=== PATIENT | female | born 1975 | race Caucasian/White ===

== ENCOUNTER 2019-10-15 16:13 | Inpatient (IN) ==
[2019-10-15 19:03] LABS: Apearance,Urine CLEAR (Clear); Bacteria,Urine Many /HPF (Few); Bilirubin,Urine Negative (Negative); Blood, Urine Negative (Negative); Glucose,Urine (UA) Negative (Negative); Ketones,Urine Negative (Negative); Mucus,Urine Occasional /LPF (Occasional); Nitrite,Urine Positive (Negative); Protein,Urine Negative; Squamous Epithelial Cell,Urine Few /HPF (0-10); Urine Color Amber (Yellow); Urine Specific Gravity 1.011 (1.001-1.035); WBC,Urine 13 /HPF (0-6)
[2019-10-15 19:07] LABS: Barbiturates Screen,Urine Positive (Negative); Benzodiazepines Screen,Urine Positive (Negative); Cannabinoid Screen,Urine Negative (Negative); Opiate Screen,Urine Negative (Negative); Phencyclidine Screen,Urine Negative (Negative)
[2019-10-15 20:27] LABS: Basophils % 0.5 % (0.0-0.8); Eosinophils # 0.2 10*3/uL (0.0-0.87); Eosinophils % 2.9 % (0.00-10.9); Hematocrit 35.2 VOL% (35.7-47.0); Hemoglobin 11.2 GM/DL (12.0-16.0); Immature Granulocytes % 0.6 %; Immature Granulocytes Absolute 0.05 #; Lymphocytes # 2.4 10*3/uL (1.4-4.0); Lymphocytes % 30.4 % (21.3-54.2); Mean Corpuscular HGB Conc 31.8 GM/DL (32-36); Mean Corpuscular Volume 92.9 FL (87-102); Mean Platelet Volume 12.9 FL (9.6-12.0); Monocytes % 8.6 % (1.7-12.7); Platelet Count 245 T/CUMM (130-400); Red Blood Count 3.79 MC/CUMM (3.8-5.5); Red Cell Distribution Width 13.7 % (9.3-17.3)
[2019-10-15 20:47] LABS: Alanine Aminotransferase 39 U/L (13-56); Albumin 3.3 G/DL (3.4-5.0); Alkaline Phosphatase 128 U/L (45-117); Aspartate Amino Transferase 19 U/L (0-37); Bilirubin,Total < 0.39 MG/DL (0.2-1.0); Blood Urea Nitrogen 7 MG/DL (7-18); Calcium 8.9 MG/DL (8.5-10.1); Estimated Glom Filtration Rate 116 ML/MIN; Glucose 96 MG/DL (74-106); Total Protein 7.7 G/DL (6.4-8.3)
[2019-10-15 20:53] LABS: ABG Base Excess 2.7 MMOL/L (-2.5-2.5); ABG HCO3 26.7 MMOL/L (20-26); ABG Oxygen Saturation 94.3 % (95-100); ABG PCO2 50.3 MM HG (35-48); ABG PH 7.367 (7.35-7.45); ABG PO2 75.2 MM HG (80-95); ABG TCO2 25.9 MMOL/L (23-27); Allen Test Positive; Pt O2 Delivery Device Room Air
[2019-10-15] MEDS ORDERED: NALOXONE 0.4 MG/ML VIAL IM STA (20:55)
[2019-10-15] MEDS ORDERED: ONDANSETRON 4 MG/2 ML VIAL IV PRN (22:09)
[2019-10-16] MEDS: SODIUM CHLORIDE 0.9% 1,000 ML IV SCH ×2 (00:20→09:00)
[2019-10-16] MEDS: PANTOPRAZOLE 40 MG VIAL IV SCH ×3 (02:07→20:28)
[2019-10-16 06:00] LABS: Basophils % 0.4 % (0.0-0.8); Eosinophils # 0.1 10*3/uL (0.0-0.87); Eosinophils % 1.9 % (0.00-10.9); Hematocrit 27.3 VOL% (35.7-47.0); Hemoglobin 8.5 GM/DL (12.0-16.0); Immature Granulocytes % 0.4 %; Immature Granulocytes Absolute 0.03 #; Lymphocytes # 1.4 10*3/uL (1.4-4.0); Lymphocytes % 20.4 % (21.3-54.2); Mean Corpuscular HGB Conc 31.1 GM/DL (32-36); Mean Corpuscular Volume 95.5 FL (87-102); Monocytes % 7.9 % (1.7-12.7); Platelet Count 174 T/CUMM (130-400); Red Blood Count 2.86 MC/CUMM (3.8-5.5); Red Cell Distribution Width 13.7 % (9.3-17.3); White Blood Count 6.7 T/CUMM (4-12)
[2019-10-16 06:33] LABS: Blood Urea Nitrogen 5 MG/DL (7-18); Calcium 6.4 MG/DL (8.5-10.1); Estimated Glom Filtration Rate 131 ML/MIN; Glucose 73 MG/DL (74-106); Osmolality,Calculated 281.8 MOS/KG (273-304); Troponin I < 0.015 NG/ML (0.00-0.045)
[2019-10-16] MEDS ORDERED: POTASSIUM CHLORIDE 20 MEQ TABLET PO ONE (06:40)
[2019-10-16] MEDS ORDERED: MAGNESIUM SULF RIDER 2 GM in PREMIX 1 EACH IV ONE (08:15)
[2019-10-16] MEDS ORDERED: PANTOPRAZOLE 40 MG TABLET PO SCH (09:00)
[2019-10-16 09:13] LABS: Hematocrit 34.8 VOL% (35.7-47.0)
[2019-10-16 09:32] LABS: Hemoglobin 10.9 GM/DL (12.0-16.0)
[2019-10-16] MEDS: cefTRIAXone 1,000 MG in SYRINGE 1 EACH IV SCH (10:25)
[2019-10-16] MEDS: POTASSIUM CHLORIDE 20 MEQ TABLET PO SCH ×2 (10:32→14:19)
[2019-10-16] MEDS ORDERED: POTASSIUM CHLORIDE 20 MEQ TABLET PO SCH (14:30)
[2019-10-16 16:42] LABS: Hematocrit 31.8 VOL% (35.7-47.0)
[2019-10-16] MEDS: clonazePAM 0.5 MG TABLET PO SCH (20:28)
[2019-10-16] MEDS ORDERED: QUEtiapine 100 MG TABLET PO SCH (21:00)
[2019-10-17 08:51] LABS: Hematocrit 34.6 VOL% (35.7-47.0); Hemoglobin 10.7 GM/DL (12.0-16.0)
[2019-10-17 08:54] VITALS: BP 124/77
[2019-10-17] MEDS ORDERED: FUROSEMIDE 20 MG/2 ML VIAL IV ONE (08:57)
[2019-10-17] MEDS ORDERED: FLUoxetine 20 MG CAPSULE PO SCH (09:00)
[2019-10-17] MEDS ORDERED: GABAPENTIN 300 MG CAPSULE PO SCH (09:00)
[2019-10-17] MEDS ORDERED: ESTRADIOL 2 MG TABLET PO SCH (09:00)
[2019-10-17] MEDS: PANTOPRAZOLE 40 MG VIAL IV SCH (09:37)
[2019-10-17] MEDS: cefTRIAXone 1,000 MG in SYRINGE 1 EACH IV SCH (09:37)
[2019-10-17] MEDS: clonazePAM 0.5 MG TABLET PO SCH (09:37)
== END 2019-10-17 11:38 | disposition home or self-care (01) | DRG 917 ==
LOC: SUATTDRO → N.ED 16:13 → SUATTDRO 21:53 → N.EDINP 21:53 → N.ICU 10-16 00:24
PROVIDERS: ADMIT Internal Medicine; ATTEND Internal Medicine